=== PATIENT | male | born 1980 | race African-American/Black ===

== ENCOUNTER 2017-10-18 12:22 | Emergency (ER) | payer MEDICAID, OTHER ==
[~2017-10-18] VITALS: Ht 180.3 cm; Wt 92.5 kg
[2017-10-18 12:50] VITALS: BP 143/98
[2017-10-18] MEDS ORDERED: cefTRIAXone SODIUM 250 MG VL IM ONE (15:30)
[2017-10-18] MEDS ORDERED: AZITHROMYCIN 250 MG TAB PO ONE (15:30)
== END 2017-10-18 15:52 | disposition home or self-care (01) ==
LOC: ER 12:22
DX: A64 Unspecified sexually transmitted disease (principal)
CPT/HCPCS: 96372; 99283; J0696